=== PATIENT | male | born 1995 | race Caucasian/White ===

== ENCOUNTER 2016-05-02 18:10 | Emergency (ER) | payer MEDICAID ==
[~2016-05-02] VITALS: Ht 172.7 cm; Wt 74.8 kg
[2016-05-02 18:38] VITALS: BP 147/80
[2016-05-02] MEDS ORDERED: Morphine Sulfate 4mg/ml Inj IVP ONE (19:15)
[2016-05-02] MEDS ORDERED: IBUPROFEN600 MG ORAL (20:04)
[2016-05-02] MEDS ORDERED: TRAMADOL HCL50 MG ORAL (20:04)
[2016-05-02 20:25] VITALS: BP 129/79
--- NOTE | 2016-05-03 09:08 | Diagnostic Imaging Report ---
Indication: PAIN Technique: 3 views of the left shoulder Comparison: none Findings: There is anterior dislocation of the left humeral head. No definite fracture demonstrated. Impression:Dislocated left shoulder. No evidence of acute fracture. The electronic medical record indicates that this was recognized by the emergency room physician
--- NOTE | 2016-05-05 08:28 | Emergency Room Report ---
History of Present Illness General Chief Complaint: General Complaint Source: Patient Present Illness HPI Patient is a 20-year-old male who presented after having increased left shoulder pain. Patient had prior history of shoulder dislocations. Patient had been attempting to climb a fence when he felt his shoulder dislocate. Patient denied any numbness or weakness to his arms.The patient had denied other locations of pain. He had multiple prior shoulder dislocations.He had attempted a self reduced the injury at home without success. The injury occurred approximately one hour prior to arrival. Allergies: Coded Allergies: PENICILLIN G (Verified Allergy, Unknown, 05/02/16) Patient History Reviewed Nursing Documentation: PMH: Agreed, PSxH: Agreed Nursing Documentation-PMH Past Medical History: No Stated History Review of Systems All Other Systems: negative except mentioned in HPI Physical Exam Vital Signs Date Time Temp Pulse Resp B/P Pulse Ox O2 Delivery O2 Flow Rate FiO2 05/02/16 18:29 98.2 88 16 147/80 99 Room Air Sp02 EP Interpretation: reviewed, normal General Appearance: normal inspection, well appearing, no apparent distress, alert, GCS 15 Head: atraumatic ENT: normal ENT inspection, hearing grossly normal, normal voice Neck: normal inspection, full range of motion, supple, no bony tend Respiratory: normal inspection, lungs clear, normal breath sounds, no respiratory distress, no retraction, no wheezing Cardiovascular #1: regular rate, rhythm, no edema Gastrointestinal: normal inspection, normal bowel sounds, non tender, soft, no guarding, no hernia Genitourinary: no CVA tenderness Musculoskeletal: normal inspection, back normal, normal range of motion, decreased range of motion, other - derformity left shoulder Neurologic: normal inspection, alert, oriented x3, responsive, renewal specialist III-XII nml as tested, speech normal Psychiatric: normal inspection, judgement/insight normal, mood/affect normal Skin: normal inspection, normal color, no rash Medical Decision Making Diagnostic Impression: Primary Impression: Anterior shoulder dislocation ER Course Patient presented for shoulder pain. Differential diagnoses included was not limited to fracture, dislocation, a.c. separation, septic joint. The patient noted have of anterior dislocation of his left shoulder. X-ray of the left shoulder 3 views interpreted by me showed anterior shoulder dislocation without evident fracture. The patient was given IV pain medication. Patient shoulder was subsequently easily reduced with Whitney technique. The patient tolerated well and was placed in a sling. The patient is advised to follow up with primary care doctor in 1-2 days. Patient is advised to return if any worsening condition or if any changes in status that are concerning. Last Vital Signs Date Time Temp Pulse Resp B/P Pulse Ox O2 Delivery O2 Flow Rate FiO2 05/02/16 20:25 98.2 79 18 129/79 99 Room Air Disposition: HOME, SELF-CARE Condition: Stable Scripts Tramadol Hcl* (ULTRAM*) 50 Mg Tablet 50 MG ORAL Q6H Y for For Pain, #15 TAB 0 Refills Prov: Clarence Sanchez 05/02/16 Ibuprofen* (MOTRIN*) 600 Mg Tablet 600 MG ORAL Q8H Y for For Pain, #30 TAB 0 Refills Prov: Clarence Sanchez 05/02/16 Referrals: CHRIS TERRAZAS,REFERRING (PCP) Patient Instructions: Shoulder Dislocation Clarence Sanchez May 05, 2016 08:28
== END 2016-05-02 20:25 | disposition home or self-care (01) ==
LOC: EMR 19:20
DX: S43.015A Anterior dislocation of left humerus, initial encounter (principal); X50.9XXA Other and unspecified overexertion or strenuous movements or postures, initial encounter; Y92.89 Other specified places as the place of occurrence of the external cause; Z88.0 Allergy status to penicillin
CPT/HCPCS: 73030; 96374; 96375; 99284; J2270; J2405

== ENCOUNTER 2019-12-07 00:32 | Emergency (ER) | payer BC, MEDICAID ==
[~2019-12-07] VITALS: Ht 175.3 cm; Wt 79.4 kg
[~2019-12-07 00:32] MED LIST: IBUPROFEN600 MG ORAL; TRAMADOL HCL50 MG ORAL
--- NOTE | 2019-12-07 00:40 | NUR ---
ED Nurse Note: Patient walked in from home d/t laceration on left hand from a knife, per patient it occurred approximately 30 minutes prior to arrival. Patient aao x 4 and ambulatory with steady gait. Patient stable upon assessment.
[2019-12-07 00:41] VITALS: BP 125/75
[2019-12-07] MEDS ORDERED: Tetanus/Diptheria/Pertussis IM ONE (00:45)
--- NOTE | 2019-12-07 00:55 | Emergency Room Report ---
History of Present Illness General Chief Complaint: Laceration Source: Patient Present Illness HPI Is a 24-year-old male who is right-hand dominant. He presents with chief complaint of finger laceration. Onset just prior to arrival. He was cutting bread and slipped and cut the dorsum of his left index finger. Was bleeding but now stopped. Tetanus up to date. Pain is 5 out of 10. Nothing made it better. Pressures stop the bleeding. Allergies: Coded Allergies: PENICILLIN G (Verified Allergy, Unknown, 05/02/16) COVID-19 Screening Contact w/high risk pt: No Experienced COVID-19 symptoms?: No COVID-19 Testing performed DIRECTOR OF [employer]ING: No Patient History Past Medical History: see triage record, old chart reviewed Past Surgical History: none Pertinent Family History: none Social History: Denies: smoking Immunizations: other Reviewed Nursing Documentation: PMH: Agreed; PSxH: Agreed Nursing Documentation-PMH Past Medical History: No Stated History Review of Systems Eye: Denies: eye pain, blurred vision ENT: Denies: ear pain, nose congestion, throat swelling Respiratory: Denies: cough, shortness of breath Cardiovascular: Denies: chest pain, palpitations Gastrointestinal: Denies: abdominal pain, diarrhea, nausea, vomiting Musculoskeletal: Denies: back pain, joint pain Skin: Denies: rash Neurological: Denies: headache, numbness Endocrine: Denies: increased thirst, increased urine Hematologic/Lymphatic: Denies: easy bruising All Other Systems: negative except mentioned in HPI Physical Exam Vital Signs Date Time Temp Pulse Resp B/P (MAP) Pulse Ox O2 Delivery O2 Flow Rate FiO2 12/07/19 00:37 98.6 94 18 122/74 (90) 99 Room Air Vitals normal Sp02 EP Interpretation: reviewed, normal General Appearance: well appearing, no apparent distress, alert Head: normocephalic, atraumatic Eyes: bilateral eye PERRL, bilateral eye EOMI ENT: hearing grossly normal, normal pharynx Neck: full range of motion, supple, no meningismus Respiratory: chest non-tender, lungs clear, normal breath sounds Cardiovascular #1: regular rate, rhythm, no murmur Gastrointestinal: normal bowel sounds, non tender, no mass, no organomegaly, no bruit, non-distended Musculoskeletal: back normal, normal range of motion, gait/station normal, other - Left index finger: On the dorsal aspect of the proximal phalanx. There is a 2 cm laceration. No foreign body. No tendon laceration. Full range of motion of the MCP, PIP, DIP joint. Psychiatric: mood/affect normal Procedures Laceration/Wound Repair Laceration/Wound Repair : Consent: Verbal Wound Location: upper extremity Wound's Depth, Shape: linear Wound Length (cm): 2 Wound Explored: clean Irrigated w/ Saline (ccs): 1000 Anesthesia: 1% Lidocaine Volume Anesthetic (ccs): 2 Wound Repaired With: sutures Suture Size/Type: 5:0, nylon Number of Sutures: 5 Sterile Dressing Applied?: Yes Patient Tolerated: Well Complications: None Medical Decision Making Diagnostic Impression: Primary Impression: Finger laceration Qualified Codes: S61.211A - Laceration without foreign body of left index finger without damage to nail, initial encounter ER Course Patient presents with a finger laceration. No evidence of tendon laceration or foreign body. Will discharge home. Last Vital Signs Date Time Temp Pulse Resp B/P (MAP) Pulse Ox O2 Delivery O2 Flow Rate FiO2 12/07/19 00:41 98.6 75 18 125/75 100 Room Air Status: improved Disposition: HOME, SELF-CARE Condition: Stable Scripts Cephalexin* (KEFLEX*) 500 Mg Capsule 500 MG ORAL TID, #21 CAP Prov: Saul Goodson MD 12/07/19 Patient Instructions: Laceration Care, Adult Additional Instructions: Keep wound clean. Clean first with hydroperoxide and apply antibiotic ointment. Follow-up with your doctor in 7 to 10 days for suture removal. Return if symptoms worsen or infected. Saul Goodson MD Dec 07, 2019 00:55
[2019-12-07] MEDS ORDERED: Lidocaine 1% Plain 30 ml INJ ONE ×2 (01:00→01:01)
[2019-12-07] MEDS ORDERED: Neosporin Oint Ud Pkt TOPIC ONE ×2 (01:19→01:30)
[2019-12-07] MEDS ORDERED: CEPHALEXIN500 MG ORAL (01:22)
[2019-12-07 01:27] VITALS: BP 122/70
--- NOTE | 2019-12-07 01:27 | NUR ---
ER DISCHARGE NOTE: Patient is cleared to be discharged per ERMD, pt is aox4, on room air, with stable vital signs. pt was given dc and prescription instructions, pt was able to verbalize understanding, pt id band removed. pt is able to ambulate with steady gait. pt took all belongings. pt wound cleaned and dressed. pt stable upon discharge.
== END 2019-12-07 01:27 | disposition home or self-care (01) ==
LOC: EMR 01:00
DX: S61.211A Laceration without foreign body of left index finger without damage to nail, initial encounter (principal); Z23 Encounter for immunization; W26.0XXA Contact with knife, initial encounter; Y92.9 Unspecified place or not applicable; Z88.0 Allergy status to penicillin
CPT/HCPCS: 12001; 90471; 90715; 99283; J2001

== ENCOUNTER 2019-12-17 16:38 | Emergency (ER) | payer SELFPAY ==
[~2019-12-17] VITALS: Ht 175.3 cm; Wt 79.4 kg
[~2019-12-17 16:38] MED LIST changes: +CEPHALEXIN500 MG ORAL
[2019-12-17 16:50] VITALS: BP 122/75
--- NOTE | 2019-12-17 16:50 | NUR ---
ED Nurse Note: pt walked in to ed for stich removal to left hand
--- NOTE | 2019-12-17 17:12 | Emergency Room Report ---
History of Present Illness General Chief Complaint: Wound Recheck/Suture Removal Source: Patient Present Illness HPI 24-year-old male with no signal past medical history here requesting suture removal from his index finger. 4 sutures were placed in 1 has already D been open patient does not have any pus drainage and the heel appears to be healed properly. Has range of motion. Patient is neurovascularly intact. Denies any pain at this time. Allergies: Coded Allergies: PENICILLIN G (Verified Allergy, Unknown, 05/02/16) COVID-19 Screening Contact w/high risk pt: No Experienced COVID-19 symptoms?: No COVID-19 Testing performed PRESBYTERIAN CLERGY: No Patient History Past Medical History: see triage record Past Surgical History: none Pertinent Family History: none Immunizations: UTD Reviewed Nursing Documentation: PMH: Agreed; PSxH: Agreed Nursing Documentation-PMH Past Medical History: No Stated History Review of Systems All Other Systems: negative except mentioned in HPI Physical Exam Vital Signs Date Time Temp Pulse Resp B/P (MAP) Pulse Ox O2 Delivery O2 Flow Rate FiO2 12/17/19 16:44 98.2 67 17 129/71 (90) 98 Room Air Sp02 EP Interpretation: reviewed, normal General Appearance: well appearing, no apparent distress Head: normocephalic, atraumatic ENT: hearing grossly normal, normal voice Neck: full range of motion, supple Respiratory: no respiratory distress, speaking full sentences Cardiovascular #1: no edema Gastrointestinal: non tender Musculoskeletal: normal inspection, gait/station normal Neurologic: alert, normal gait Psychiatric: mood/affect normal Skin: other - Healed laceration index finger Lymphatic: no adenopathy Medical Decision Making PA Attestation All diagnoses and treatment plans were reviewed and discussed with my supervising physician Dr. Vigil Diagnostic Impression: Primary Impression: Encounter for removal of sutures ER Course 24-year-old male with no signal past medical history here requesting suture removal from his index finger. 4 sutures were placed in 1 has already D been open patient does not have any pus drainage and the heel appears to be healed properly. Has range of motion. Patient is neurovascularly intact. Denies any pain at this time. Ddx considered but are not limited to : Superficial laceration, deep laceration , tendon involvement with laceration, laceration with foreign body Vital signs: are WNL, pt. is afebrile H&PE are most consistent with: Suture removal ORDERS: Mupirocin ointment ED INTERVENTIONS: 4 sutures were removed without any complication and bleeding DISCHARGE: At this time pt. is stable for d/c to home. Will provide printed patient care instructions, and any necessary prescriptions. Care plan and follow up instructions have been discussed with the patient prior to discharge. Last Vital Signs Date Time Temp Pulse Resp B/P (MAP) Pulse Ox O2 Delivery O2 Flow Rate FiO2 12/17/19 16:44 98.2 67 17 129/71 (90) 98 Room Air Disposition: HOME, SELF-CARE Condition: Stable Scripts Mupirocin* (MUPIROCIN*) 22 Gm Oint...g. 1 APPLIC TOPIC THREE TIMES A DAY, #22 GM Prov: Lizbeth Mcnulty 12/17/19 Patient Instructions: Wound Check Lizbeth Mcnulty Dec 17, 2019 17:12
[2019-12-17] MEDS ORDERED: MUPIROCIN22 GM TOPIC (17:13)
--- NOTE | 2019-12-17 17:17 | NUR ---
ED Nurse Note: suture being removed by erpa at bedside at this time.
[2019-12-17 17:20] VITALS: BP 120/73
--- NOTE | 2019-12-17 17:20 | NUR ---
ER DISCHARGE NOTE: Patient is cleared to be discharged per ERMD, pt is aox4, on room air, with stable vital signs. pt was given dc and prescription instructions, pt was able to verbalize understanding, pt id band removed without complications. pt is able to ambulate with steady gait. pt took all belongings.
== END 2019-12-17 17:20 | disposition home or self-care (01) ==
LOC: EMR 17:11
DX: Z48.02 Encounter for removal of sutures (principal); Z88.0 Allergy status to penicillin
CPT/HCPCS: 99281